=== PATIENT | male | born 1990 | race Caucasian/White ===

== ENCOUNTER 2017-04-04 13:07 | Emergency (ER) | payer MEDICAID ==
[~2017-04-04] VITALS: Ht 167.6 cm; Wt 99.0 kg
[2017-04-04 22:48] VITALS: BP 126/68
== END 2017-04-04 22:51 | disposition home or self-care (01) ==
LOC: ER 13:28
DX: S00.83XA Contusion of other part of head, initial encounter (principal); S00.432A Contusion of left ear, initial encounter; Y04.8XXA Assault by other bodily force, initial encounter; Y93.89 Activity, other specified; Y92.89 Other specified places as the place of occurrence of the external cause; F17.210 Nicotine dependence, cigarettes, uncomplicated; F15.10 Other stimulant abuse, uncomplicated
CPT/HCPCS: 70450; 99284

== ENCOUNTER 2019-05-16 15:52 | Emergency (ER) | payer BC, MEDICAID ==
[~2019-05-16] VITALS: Ht 167.6 cm; Wt 87.0 kg
[2019-05-16 17:47] LABS: CLARITY URINE CLEAR (CLEAR); COLOR URINE DARK YELLOW (YELLOW); KETONES URINE TRACE (NEGATIVE); LEUKOCYTE ESTERASE URINE NEGATIVE (NEGATIVE); NITRITE URINE NEGATIVE (NEGATIVE); OCCULT BLOOD URINE NEGATIVE (NEGATIVE); PROTEIN URINE NEGATIVE (NEGATIVE); SPECIFIC GRAVITY URINE 1.037 (1.005-1.030)
[2019-05-16] MEDS ORDERED: CEFTRIAXONE SODIUM 250 MG/VIAL IM ONE (18:00)
[2019-05-16] MEDS ORDERED: AZITHROMYCIN 500 MG TABLET PO ONE (18:00)
[2019-05-16 18:26] VITALS: BP 116/67
== END 2019-05-16 18:29 | disposition home or self-care (01) ==
LOC: ER 15:52
DX: R30.0 Dysuria (principal); F12.10 Cannabis abuse, uncomplicated; F17.210 Nicotine dependence, cigarettes, uncomplicated
CPT/HCPCS: 81003; 96372; 99283; J0696